=== PATIENT | female | born 1975 | race American Indian/Alaskan Native ===

== ENCOUNTER → 2016-09-14 | Outpatient (CLI) | payer BC ==
--- NOTE | 2016-09-14 11:37 | US ---
EXAMINATION TYPE: US abdomen complete DATE OF EXAM: 09/14/2016 COMPARISON: NONE CLINICAL HISTORY: R10.9 Unspecified Abd Pain. epigastric pain EXAM MEASUREMENTS: Liver Length: 16.1cm cm Gallbladder Wall: 0.2 cm CBD: 0.5 cm Spleen: 8.2 cm Right Kidney: 9.6 x 3.8 x 5.5 cm Left Kidney: 10.9 x 4.8 x 4.9 cm Some exam limitations due to overlying bowel gas. Pancreas: Tail obscured by overlying bowel gas, visualized portions wnl Liver: wnl Gallbladder: wnl Evidence for sonographic Chow's sign: no CBD: wnl Spleen: wnl Right Kidney: wnl Left Kidney: wnl Upper IVC: wnl Abd Aorta: wnl The kidneys show normal cortical medullary differentiation. There is no ascites. The liver is homogenous. The intrahepatic portion of the IVC and proximal abdominal aorta are within normal limits. There is no evidence of cholelithiasis. Common bile duct is unremarkable. The visu alized portions of the pancreas are homogenous. The spleen is unremarkable. Kidneys are symmetric a nd free of hydronephrosis. No renal lesions are seen. IMPRESSION: No significant abnormalities evident
--- NOTE | 2016-09-14 11:39 | US ---
EXAMINATION TYPE: US pelvic complete DATE OF EXAM: 09/14/2016 COMPARISON: US 08/20 CLINICAL HISTORY: R10.9 Unspecified Abd Pain. TECHNIQUE: Transabdominal (TA) Date of LMP: about 2 wks ago EXAM MEASUREMENTS: Uterus: 9.8 x 6.6 x 7.5 cm Endometrial Stripe: 2.0 cm Right Ovary: 2.7 x 1.5 x 2.2 cm Left Ovary: 3.3 x 1.9 x 2.7 cm 1. Uterus: Anteverted seen with a 1.6cm Nabothian cyst, bulky heterogeneous uterine body 2. Endometrium: thickened, heterogeneous, some vascularity present 3. Right Ovary: wnl 4. Left Ovary: wnl 5. Bilateral Adnexa: wnl 6. Posterior cul-de-sac: no free fluid seen IMPRESSION: Abnormal thickening of the endometrium, endometrial biopsy should be considered.
== END | disposition home or self-care (01) ==
LOC: RADUSWWP 08:17
PROVIDERS: ATTEND Family Medicine
DX: R93.8 Abnormal findings on diagnostic imaging of other specified body structures (principal); R10.9 Unspecified abdominal pain
CPT/HCPCS: 76700; 76856

== ENCOUNTER 2017-04-01 13:03 | Emergency (ER) | payer BC ==
[2017-04-01 13:31] VITALS: BP 116/60; PULSE 86; RESP 18; TEMP 100.1
[2017-04-01] MEDS ORDERED: IBUPROFEN 600 MG TAB PO STA (13:44)
--- NOTE | 2017-04-01 13:48 | ED ---
General Adult HPI - General Chief complaint: Upper Respiratory Infection Stated complaint: body aches/cough/chest discomfort Time Seen by Provider: 04/01/17 13:37 Source: patient, RN notes reviewed Mode of arrival: ambulatory Limitations: no limitations - History of Present Illness Initial comments: Patient's a 41-year-old female who presents emergency room today with her daughter with chief complaint of cough congestion. She states her daughter got sick approximately one week ago. She states her symptoms started just 2 days ago. She states that she's had some chills bodyaches. Does admit to feeling hot and cold. States she does have a sore throat. Admits to cough. Denies any other complaints. Patient denies any recent shortness of breath, chest pain , back pain, abdominal pain, nausea or vomiting, numbness or tingling, headaches or visual changes, or any other complaints. - Related Data Previous Rx's Medication Instructions Recorded Ibuprofen [Motrin] 600 mg PO Q6HR PRN #20 tab 04/22/14 Ibuprofen [Motrin] 600 mg PO Q6HR PRN #20 tab 01/10/17 Acetaminophen Tab [Tylenol] 1,000 mg PO TID 5 Days tablet 04/01/17 Ibuprofen [Motrin] 600 mg PO Q6HR PRN #30 day 04/01/17 Oseltamivir [Tamiflu] 75 mg PO Q12HR 5 Days cap 04/01/17 Allergies Allergy/AdvReac Type Severity Reaction Status Date / Time No Known Allergies Allergy Verified 04/01/17 13:31 Review of Systems ROS Statement: Those systems with pertinent positive or pertinent negative responses have been documented in the HPI. ROS Other: All systems not noted in ROS Statement are negative. Past Medical History Past Medical History: No Reported History History of Any Multi-Drug Resistant Organisms: None Reported Past Surgical History: No Surgical Hx Reported Past Psychological History: No Psychological Hx Reported Smoking Status: Current every day smoker Past Alcohol Use History: None Reported Past Drug Use History: None Reported General Exam - General Exam Comments Initial Comments: General: The patient is awake and alert, in no distress, and does not appear acutely ill. Eye: Pupils are equal, round and reactive to light, extra-ocular movements are intact. No nystagmus. There is normal conjunctiva bilaterally. No signs of icterus. Ears, nose, mouth and throat: There are moist mucous membranes and no oral lesions. Neck: The neck is supple, there is no tenderness or JVD. Cardiovascular: There is a regular rate and rhythm. No murmur, rub or gallop is appreciated. Respiratory: Lungs are clear to auscultation, respirations are non-labored, breath sounds are equal. No wheezes, stridor, rales, or rhonchi. Musculoskeletal: Normal ROM, no tenderness. Strength 5/5. Sensation intact. Pulses equal bilaterally 2+. Neurological: A&O x 3. CN II-XII intact, There are no obvious motor or sensory deficits. Coordination appears grossly intact. Speech is normal. Skin: Skin is warm and dry and no rashes or lesions are noted. Psychiatric: Cooperative, appropriate mood & affect, normal judgment. Limitations: no limitations Course Vital Signs 04/01/17 13:28 Temperature 100.1 F H Pulse Rate 86 Respiratory 18 Rate Blood Pressure 116/60 O2 Sat by Pulse 99 Oximetry Medical Decision Making - Medical Decision Making Patient's strep test negative. Chest x-ray negative for any sign of pneumonia. Patient's symptoms are consistent with influenza. Will be started on Tamiflu. Advised Tylenol/Motrin for aches pains and fevers. Advised to increase oral fluids. Advised follow-up family doctor return here to emergency room if any symptoms increase worsen. - Lab Data Lab Results 04/01/17 Range/Units 13:40 Group A Strep Rapid Negative (Negative) Disposition Clinical Impression: Influenza Disposition: HOME SELF-CARE Condition: Good Instructions: Influenza (ED) Additional Instructions: Please use medication as discussed. Please follow-up with family doctor in the next 2 days of symptoms have not improved. Please return to emergency room if the symptoms increase or worsen or for any other concerns. Prescriptions: Acetaminophen Tab [Tylenol] 1,000 mg PO TID 5 Days tablet Ibuprofen [Motrin] 600 mg PO Q6HR PRN #30 day PRN Reason: Pain Oseltamivir [Tamiflu] 75 mg PO Q12HR 5 Days cap Referrals: Josué Dennis III, MD [Primary Care Provider] - 1-2 days Time of Disposition: 14:17
--- NOTE | 2017-04-01 14:06 | XR ---
EXAMINATION TYPE: XR chest 2V DATE OF EXAM ORDERED: 04/01/2017 HISTORY: cough. REFERENCE: None. FINDINGS: The lungs are clear. Pleural spaces are clear. Heart size is normal. IMPRESSION: NORMAL CHEST.
== END 2017-04-01 14:26 | disposition home or self-care (01) ==
LOC: EC 13:03
DX: J11.1 Influenza due to unidentified influenza virus with other respiratory manifestations (principal); F17.200 Nicotine dependence, unspecified, uncomplicated
CPT/HCPCS: 71046; 87081; 87430; 99283

== ENCOUNTER → 2018-10-11 | Outpatient (CLI) | payer BC ==
--- NOTE | 2018-10-14 09:15 | MM ---
Reason for exam: screening (asymptomatic). Last mammogram was performed 7 years and 1 month ago. Physical Findings: A clinical breast exam by your physician is recommended on an annual basis and results should be correlated with mammographic findings. MG Screening Mammo w CAD Bilateral CC and MLO view(s) were taken. Prior study comparison: August 29, 2011, [facility] DIGITAL RIGHT MAMMOGRAM w/CAD. August 24, 2011, bilateral digital screening mammo w/CAD. The breast tissue is heterogeneously dense. This may lower the sensitivity of mammography. There is no discrete abnormality. ASSESSMENT: Negative, BI-RAD 1 RECOMMENDATION: Routine screening mammogram of both breasts in 1 year.
== END | disposition home or self-care (01) ==
LOC: RADMAMWWP 08:47
PROVIDERS: ATTEND Obstetrics & Gynecology
DX: Z12.31 Encounter for screening mammogram for malignant neoplasm of breast (principal)
CPT/HCPCS: 77067

== ENCOUNTER → 2019-12-05 | Outpatient (CLI) | payer BC ==
--- NOTE | 2019-12-09 08:34 | MM ---
Reason for exam: screening (asymptomatic). Last mammogram was performed 1 year and 2 months ago. Physical Findings: A clinical breast exam by your physician is recommended on an annual basis and results should be correlated with mammographic findings. MG Screening Mammo w CAD Bilateral CC and MLO view(s) were taken. Prior study comparison: October 11, 2018, bilateral MG screening mammo w CAD. August 29, 2011, [facility] DIGITAL RIGHT MAMMOGRAM w/CAD. The breast tissue is heterogeneously dense. This may lower the sensitivity of mammography. No significant changes when compared with prior studies. ASSESSMENT: Negative, BI-RAD 1 RECOMMENDATION: Routine screening mammogram of both breasts in 1 year.
== END | disposition home or self-care (01) ==
LOC: RADMAMWWP 16:36
PROVIDERS: ATTEND Obstetrics & Gynecology
DX: Z12.31 Encounter for screening mammogram for malignant neoplasm of breast (principal)
CPT/HCPCS: 77067

== ENCOUNTER → 2019-12-19 | Outpatient (CLI) | payer BC | END | disposition home or self-care (01) | LOC: LABWHC1 13:51 | PROVIDERS: ATTEND Nurse Practitioner Family | DX: Z20.828 Contact with and (suspected) exposure to other viral communicable diseases (principal) | CPT/HCPCS: U0003; C9803 ==

== ENCOUNTER → 2020-03-03 | Outpatient (CLI) | payer BC ==
--- NOTE | 2020-03-03 16:02 | US ---
EXAMINATION TYPE: US abdomen complete DATE OF EXAM: 03/03/2020 COMPARISON: 09/14/2016 CLINICAL HISTORY: R10.13 Epigastric pain. Epigastric pain. NPO. No prior abdominal surgeries. EXAM MEASUREMENTS: Liver Length: 16.3 cm Gallbladder Wall: 0.2 cm CBD: 0.4 cm Spleen: 10.2 cm Right Kidney: 9.3 x 4.6 x 4.4 cm Left Kidney: 10.1 x 4.6 x 4.8 cm Pancreas: wnl Liver: wnl Gallbladder: wnl Evidence for sonographic Chow's sign: neg CBD: wnl Spleen: wnl Right Kidney: No hydronephrosis or masses seen Left Kidney: No hydronephrosis or masses seen Upper IVC: wnl Abd Aorta: No AAA visualized IMPRESSION: 1. Hepatomegaly.
== END | disposition home or self-care (01) ==
LOC: RADUSWWP 10:20
PROVIDERS: ATTEND Family Medicine
DX: R16.0 Hepatomegaly, not elsewhere classified (principal); R10.13 Epigastric pain
CPT/HCPCS: 76700

== ENCOUNTER 2020-04-23 07:04 | Day surgery (SDC) | payer BC ==
[2020-04-21 09:51] VITALS: BMI 29.9
[2020-04-23 09:03] VITALS: RESP 18; TEMP 97.4
[2020-04-23] MEDS ORDERED: LACTATED RINGERS 1,000 ML IV ONE (09:13)
[2020-04-23] MEDS ORDERED: LIDOCAINE 1% INJ 10MG/ML (20 ML MDV) ONE (09:34)
[2020-04-23] MEDS ORDERED: PROPOFOL 10 MG/ML 20 ML VIAL IV ONE (09:34)
--- NOTE | 2020-04-23 09:55 | P.PCN ---
Date of Procedure: 04/23/20 Procedure(s) Performed: Brief history: Patient is a pleasant 44-year-old white female scheduled for an elective upper endoscopy as well as colonoscopy as a part of evaluation of Iron deficiency anemia and long-standing history of GERD. Procedure performed: Esophagogastroduodenoscopy with biopsy Colonoscopy Preoperative diagnosis: Iron deficiency anemia. History of GERD Anesthesia: MAC Procedure: After informed consent was obtained from the patient was brought into the endoscopy unit and IV sedation was administered by anesthesia under continuous monitoring. Initially upper endoscopy was done. The Olympus GF 160 video endoscope was inserted inserted into the mouth and esophagus intubated without any difficulty and was gradually advanced into the stomach and duodenum and carefully examined. The bulb and second part of the duodenum appeared normal. Biopsies were done from the duodenum to rule out celiac disease. The scope was then withdrawn into the stomach adequately insufflated with air and upon careful examination the antrum and body, cardia and fundus appeared normal. The scope was then withdrawn into the esophagus. The GE junction was located at 40 cm to the incisors. It appeared regular with no erythema erosions or ulcerations. Rest of the esophagus appeared normal. Patient tolerated the procedure well. At this time the patient continued to remain sedation. Initial digital rectal examination was normal. Olympus CF 160 video colonoscope was then inserted into the rectum and gradually advanced to the cecum without any difficulty. Careful examination was performed as the scope was gradually being withdrawn. The prep was excellent. The cecum, ascending colon, transverse colon, descending colon, sigmoid colon and rectum appeared normal. Retroflexion was performed in the rectum and no lesions were noted. Patient tolerated the procedure well. Impression: 1. Upper endoscopy was essentially within normal limits with no evidence of gastritis or peptic ulcer disease 2. Colonoscopy revealed no evidence of colorectal neoplasia Recommendations: Findings of this examination were discussed with the patient as well as her family. She was advised to follow with the biopsy results and she'll be seen in office in one to 2 weeks.
[2020-04-23 10:16] VITALS: BP 110/66; PULSE 70
== END 2020-04-23 10:37 | disposition home or self-care (01) ==
LOC: ORWHC2ENDO 07:04
PROVIDERS: ATTEND Internal Medicine Gastroenterology
DX: D72.820 Lymphocytosis (symptomatic) (principal); D50.9 Iron deficiency anemia, unspecified; K21.9 Gastro-esophageal reflux disease without esophagitis; Z79.899 Other long term (current) drug therapy
CPT/HCPCS: 81025; 88305; 45378; 43239; J2001; J2704

== ENCOUNTER → 2020-04-28 | Outpatient (CLI) | payer BC ==
[2020-04-29 06:05] LABS: Gliadin AB IgA, Deaminated NEGATIVE (NEGATIVE); Gliadin AB IgA, Unit 1.3 U/mL; Gliadin AB IgG, Deaminated NEGATIVE (NEGATIVE)
== END | disposition home or self-care (01) ==
LOC: LABWHC1 15:03
PROVIDERS: ATTEND Nurse Practitioner
DX: R89.7 Abnormal histological findings in specimens from other organs, systems and tissues (principal)
CPT/HCPCS: 36415; 83516

== ENCOUNTER → 2020-04-30 | Outpatient (CLI) | payer BC ==
[2020-04-30 18:11] LABS: % Iron Saturation 10.19 (12.00-45.00)
[2020-04-30 18:13] LABS: Basophils # (A) 0.04 X 10*3/uL (0.00-0.10); Eosinophils # (A) 0.03 X 10*3/uL (0.04-0.35); Eosinophils % (A) 0.8 %; HGB 11.8 g/dL (12.0-15.0); Lymphocytes # (A) 1.42 X 10*3/uL (0.90-5.00); Lymphocytes % (A) 36.6 %; MCH 27.8 pg (27.0-32.0); MCHC 30.3 g/dL (32.0-37.0); MCV 91.8 fL (80.0-97.0); Mean Platelet Volume 12.9 fL (9.5-12.2); Monocytes # (A) 0.77 X 10*3/uL (0.20-1.00); Monocytes % (A) 19.8 %; Neutrophils # (A) 1.61 X 10*3/uL (1.80-7.70); Neutrophils % (A) 41.5 %; Platelet Count 181 X 10*3/uL (140-440); RBC 4.25 X 10*6/uL (4.10-5.20); WBC 3.88 X 10*3/uL (4.50-10.00)
[2020-04-30 18:20] LABS: Ferritin 22.1 ng/mL (10.0-291.0)
== END | disposition home or self-care (01) ==
LOC: LABWHC1 10:24
PROVIDERS: ATTEND Nurse Practitioner
DX: D50.9 Iron deficiency anemia, unspecified (principal)
CPT/HCPCS: 36415; 82728; 83540; 83550; 85025

== ENCOUNTER → 2020-05-20 | Outpatient (CLI) | payer BC | END | disposition home or self-care (01) | LOC: LABWHC1 16:16 | PROVIDERS: ATTEND Nurse Practitioner Family | DX: Z20.822 Contact with and (suspected) exposure to COVID-19 (principal) | CPT/HCPCS: U0003; C9803 ==

== ENCOUNTER 2020-09-19 14:50 | Emergency (ER) | payer BC ==
[2020-09-19] MEDS ORDERED: DIPH,PERTUS(ACELL)TETVAC-LF 0.5 ML VIAL IM ONE (14:53)
[2020-09-19 15:01] LABS: Glucose,Whole Blood 122 mg/dL (75-99)
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
[2020-09-19 15:06] VITALS: BP 125/75; PULSE 92; RESP 18; TEMP 98.4
[2020-09-19 15:22] LABS: Basophils # (A) 0.1 k/uL (0-0.2); Basophils % (A) 1 %; Eosinophils % (A) 0 %; HCT 42.8 % (34.0-46.0); HGB 14.4 gm/dL (11.4-16.0); Lymphocytes % (A) 16 %; MCH 32.7 pg (25.0-35.0); MCHC 33.7 g/dL (31.0-37.0); Mean Platelet Volume 9.6; Monocytes # (A) 0.3 k/uL (0-1.0); Monocytes % (A) 4 %; Neutrophils % (A) 78 %; Platelet Count 196 k/uL (150-450); RBC 4.41 m/uL (3.80-5.40); RDW 13.9 % (11.5-15.5); WBC 6.4 k/uL (3.8-10.6)
[2020-09-19 15:30] LABS: Partial Thromboplastin Time 23.3 sec (22.0-30.0); Prothrombin Time 10.3 sec (9.0-12.0)
[2020-09-19 15:38] LABS: ALT 16 U/L (4-34); AST 35 U/L (14-36); African American GFR (CKD) >90 (>60 ml/min/1.73 sqM); Albumin 4.3 g/dL (3.5-5.0); Alcohol <10 mg/dL; Alkaline Phosphatase 53 U/L (38-126); Anion Gap 9 mmol/L; Blood Urea Nitrogen 8 mg/dL (7-17); Calcium 9.4 mg/dL (8.4-10.2); Carbon Dioxide 22 mmol/L (22-30); Chloride 108 mmol/L (98-107); Glucose 122 mg/dL (74-99); Non-African American GFR(CKD) >90 (>60 ml/min/1.73 sqM); Sodium 139 mmol/L (137-145); Total Bilirubin 0.4 mg/dL (0.2-1.3)
--- NOTE | 2020-09-19 15:38 | XR ---
EXAMINATION TYPE: XR pelvis AP view DATE OF EXAM: 09/19/2020 COMPARISON: 08/11/2015 HISTORY: Pain TECHNIQUE: FINDINGS: Single view shows an intact pelvic ring. Proximal femurs are intact. Sacroiliac joints are intact. There are clips from tubal ligation. IMPRESSION: Normal exam. No fracture.
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
[2020-09-19] MEDS ORDERED: LIDOCAINE 1% INJ 10MG/ML (20 ML MDV) SQ ONE (15:48)
[2020-09-19 15:56] LABS: Potassium 4.4 mmol/L (3.5-5.1)
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
--- NOTE | 2020-09-19 16:33 | XR ---
EXAMINATION TYPE: XR hand complete LT DATE OF EXAM: 09/19/2020 COMPARISON: NONE HISTORY: Pain TECHNIQUE: 3 views FINDINGS: Metacarpals are intact. I see no fracture nor dislocation. Joint spaces are fairly normal. There are no erosions. Carpal bones are intact. IMPRESSION: No acute abnormality of the left hand.
[2020-09-19] MEDS ORDERED: PROPARACAINE 0.5% OPHTH DROPS 15 ML BTL LEFT EYE STA (16:51)
[2020-09-19] MEDS ORDERED: FLUORESCEIN STRIPS 1 MG STRIP LEFT EYE ONE (17:02)
[2020-09-19] MEDS ORDERED: MORPHINE SULFATE 2 MG/ML SYRINGE IVP STA (17:14)
[2020-09-19] MEDS ORDERED: KETOROLAC 15 MG/ML 1 ML VIAL IVP STA (17:14)
[2020-09-19] MEDS ORDERED: BACITRACIN OINT 1 EACH PACKET TOPICAL ONE (17:14)
== END 2020-09-19 17:30 | disposition home or self-care (01) ==
LOC: EC 14:50
DX: S01.81XA Laceration without foreign body of other part of head, initial encounter (principal); M54.2 Cervicalgia; M79.642 Pain in left hand; R10.2 Pelvic and perineal pain; Z87.891 Personal history of nicotine dependence; Z23 Encounter for immunization; V29.9XXA Motorcycle rider (driver) (passenger) injured in unspecified traffic accident, initial encounter
CPT/HCPCS: 36415; 93005; 86900; 86901; 80053; 84484; 85025; 85610; 85730; 86850; 80320; 72170; 73130; 71045; 72125; 70486; 70450; 71260; 74177; 90715; 99284; 12052; 90471; J2001; Q9967

== ENCOUNTER → 2020-12-31 | Outpatient (CLI) | payer BC ==
--- NOTE | 2021-01-03 12:54 | MM ---
Reason for exam: screening (asymptomatic). Last mammogram was performed 1 year and 1 month ago. History: Family history of breast cancer in cousin at age 51. Physical Findings: A clinical breast exam by your physician is recommended on an annual basis and results should be correlated with mammographic findings. MG Screening Mammo w CAD Bilateral CC and MLO view(s) were taken. Prior study comparison: December 05, 2019, bilateral MG screening mammo w CAD. October 11, 2018, bilateral MG screening mammo w CAD. The breast tissue is heterogeneously dense. This may lower the sensitivity of mammography. There is no discrete abnormality. No significant changes when compared with prior studies. ASSESSMENT: Negative, BI-RAD 1 RECOMMENDATION: Routine screening mammogram of both breasts in 1 year.
== END | disposition home or self-care (01) ==
LOC: RADMAMWWP 15:52
PROVIDERS: ATTEND Obstetrics & Gynecology
DX: Z12.31 Encounter for screening mammogram for malignant neoplasm of breast (principal)
CPT/HCPCS: 77067

== ENCOUNTER → 2022-07-10 | Outpatient (CLI) | payer BC ==
--- NOTE | 2022-07-10 09:29 | CT ---
EXAMINATION TYPE: CT iac wo con DATE OF EXAM: 07/10/2022 COMPARISON: CT brain September 19, 2020 HISTORY: Left sided hearing loss. CT DLP: 142.7 mGycm. Automated Exposure Control for Dose Reduction was Utilized. TECHNIQUE: CT scan of internal auditory canal is performed without contrast, thin cut axial images ar e obtained, coronal reformatted images are also reviewed. FINDINGS: The external auditory canals remain patent bilaterally. Mastoid air cells show no evidence of abnormal opacification bilaterally. The middle ear ossicles are symmetric and unremarkable. There is no evidence of suspicious surroundi ng soft tissue density to suggest cholesteatoma. The scutum is preserved bilaterally. The cochlea and the semicircular canals are symmetric and unremarkable. Satisfactory superior bony co verage of the superior semicircular canal bilaterally. No dehiscence. Vestibular aqueduct and mechanical intern al carotid canal appear unremarkable. Temporomandibular joints are maintained bilaterally. Visualized paranasal sinuses are grossly clear. Visualized portion brain parenchyma is felt within normal limits. IMPRESSION: No significant abnormality seen to account for patient's symptoms of left-sided hearing l oss. No significant change from prior.
== END | disposition home or self-care (01) ==
LOC: RADCTMAIN 08:30
PROVIDERS: ATTEND Otolaryngology
DX: H92.02 Otalgia, left ear (principal)
CPT/HCPCS: 70480

== ENCOUNTER → 2023-04-12 | Outpatient (CLI) | payer BC ==
--- NOTE | 2023-04-13 08:46 | MM ---
Reason for Exam: Screening (asymptomatic). Last mammogram was performed 2 year(s) and 4 month(s) ago. Patient History: Menarche at age 13. First Full-Term at age 17. Postmenopausal. Patient has history of breast feeding. Maternal cousin had breast cancer, age 51. Risk Values: Victoria 5 year model risk: 0.6%. NCI Lifetime model risk: 6.8%. Prior Study Comparison: 10/11/2018 Bilateral Screening Mammogram, [facility]. 12/05/2019 Bilateral Screening Mammogram, [facility]. 12/31/2020 Bilateral Screening Mammogram, [facility]. Tissue Density: The breasts are heterogeneously dense, which may obscure small masses. Findings: Analyzed By CAD. There is no suspicious group of microcalcifications or new suspicious mass in either breast. Overall Assessment: Negative, BI-RAD 1 Management: Screening Mammogram of both breasts in 1 year. . Patient should continue monthly self-breast exams. A clinical breast exam by your physician is recommended on an annual basis. This exam should not preclude additional follow-up of suspicious palpable abnormalities. Note on Victoria scores and lifetime risk: 1. A Victoria score greater than 3% is considered moderate risk. If this is the case, consider specialist referral to assess eligibility for a risk reducing agent. 2. If overall lifetime risk for the development of breast cancer is 20% or higher, the patient may qualify for future screening with alternating mammogram and breast MRI. Electronically signed and approved by: Antoni Thompson M.D. Radiologis
== END | disposition home or self-care (01) ==
LOC: RADMAMWWP 10:18
PROVIDERS: ATTEND Obstetrics & Gynecology
DX: Z12.31 Encounter for screening mammogram for malignant neoplasm of breast (principal); Z80.3 Family history of malignant neoplasm of breast; Z78.0 Asymptomatic menopausal state
CPT/HCPCS: 77067

== ENCOUNTER 2024-01-20 13:25 | Inpatient (IN) | payer BC, OTHER ==
--- NOTE | 2024-01-20 14:35 | ED ---
Skin/Abscess/FB HPI - General Source: patient, RN notes reviewed Mode of arrival: ambulatory Limitations: no limitations - History of Present Illness MD complaint: abscess/boil Onset/Timin -: days(s) <Kirk Kwan - Last Filed: 01/20/24 14:34> - General Source: patient, RN notes reviewed <Brittny Harrison - Last Filed: 01/20/24 19:46> - General Chief complaint: Skin/Abscess/Foreign Body Stated complaint: Bite/Unidentified Time Seen by Provider: 01/20/24 13:41 - History of Present Illness Initial comments: Quick note: This is a 48-year-old female presenting with rash on abdomen x 3 days. Patient endorses daughter recently from home from aunts house, who had a rash before eczema rash. On patient's abdomen. Patient describes rash as "bumps" and "burning". (Kirk Kwan) 48-year-old female presenting for rash on abdomen x 3 days. States her daughter recently spent the weekend at her aunts house who returned home with several bites on her arms and abdomen. Patient reports her abdomen is red, warm, and painful. She was seen at urgent care at symptom onset and was prescribed steroid cream. Patient is also complaining of fever and general malaise. No other health conditions. (Brittny Harrison) - Related Data Home Medications Medication Instructions Recorded Confirmed Multivitamins, Thera [Multivitamin 1 tab PO DAILY 09/19/20 09/19/20 (formulary)] Previous Rx's Medication Instructions Recorded Cephalexin [Keflex] 500 mg PO QID 5 Days #20 cap 09/19/20 HYDROcodone/APAP 5-325MG [[place] 1 tab PO Q6HR PRN #12 tab 09/19/20 5-325] Ibuprofen [Motrin] 600 mg PO Q8HR PRN #24 tab 09/19/20 Allergies Allergy/AdvReac Type Severity Reaction Status Date / Time No Known Allergies Allergy Verified 01/20/24 13:57 Review of Systems ROS Other: All systems not noted in ROS Statement are negative. <Kirk Kwan - Last Filed: 01/20/24 14:34> ROS Other: All systems not noted in ROS Statement are negative. <Brittny Harrison - Last Filed: 01/20/24 19:46> ROS Statement: Those systems with pertinent positive or pertinent negative responses have been documented in the HPI. Past Medical History Past Medical History: No Reported History Additional Past Medical History / Comment(s): EPI GASTRIC PAIN History of Any Multi-Drug Resistant Organisms: None Reported Past Surgical History: Tubal Ligation Past Anesthesia/Blood Transfusion Reactions: Previous Problems w/ Anesthesia Additional Past Anesthesia/Blood Transfusion Reaction / Comment(s): WOKE UP DURING PROCEDURE Past Psychological History: No Psychological Hx Reported Smoking Status: Former smoker Past Alcohol Use History: Rare Past Drug Use History: None Reported - Past Family History Mother Family Medical History: Cancer <Kirk Kwan - Last Filed: 01/20/24 14:34> General Exam Limitations: no limitations <Kirk Kwan - Last Filed: 01/20/24 14:34> General appearance: alert, in no apparent distress Head exam: Present: atraumatic, normocephalic, normal inspection GI/Abdominal exam: Present: soft, normal bowel sounds, other (6 x 6 cm indurated, warm, erythematous abscess present on left abdomen with purulent white center). Absent: distended, tenderness, guarding, rebound, rigid Neurological exam: Present: alert, oriented X3 Psychiatric exam: Present: normal affect, normal mood Skin exam: Present: warm, dry, intact, normal color <Brittny Harrison - Last Filed: 01/20/24 19:46> - General Exam Comments Initial Comments: Visual Physical Exam Vital signs reviewed General: Well-appearing, nontoxic, no acute distress. Head: Normocephalic, atraumatic Eyes: PERRLA, EOMI ENT: Airway patent Chest: Nonlabored breathing Skin: No visual rash, normal skin tone Neuro: Alert and oriented 3 Musculoskeletal: No gross abnormalities (Kirk Kwan) Course Vital Signs 01/20/24 01/20/24 01/20/24 13:54 18:13 18:51 Temperature 100.5 F H 98.4 F 98.6 F Pulse Rate 103 H 86 Respiratory 18 18 Rate Blood Pressure 126/79 118/72 O2 Sat by Pulse 96 100 Oximetry Medical Decision Making <Kirk Kwan - Last Filed: 01/20/24 14:34> - Lab Data Result diagrams: 01/20/24 17:27 01/20/24 17:27 <Brittny Harrison - Last Filed: 01/20/24 19:46> - Medical Decision Making I completed the quick note portion of this chart signed LETICIA Rosario (Kirk Kwan) Was pt. sent in by a medical professional or institution (ABDIFATAH Izquierdo, INFORMATION SECURITY CONSULTANT, urgent care, hospital, or skilled nursing...) When possible be specific @ -No Did you speak to anyone other than the patient for history (EMS, parent, family, police, friend...)? What history was obtained from this source @ -No Did you review nursing and triage notes (agree or disagree)? Why? @ -I reviewed and agree with nursing and triage notes Were old charts reviewed (outside hosp., previous admission, EMS record, old EKG, old radiological studies, urgent care reports/EKG's, skilled nursing records)? Report findings @ -No old charts were reviewed Differential Diagnosis (chest pain, altered mental status, abdominal pain women, abdominal pain men, vaginal bleeding, weakness, fever, dyspnea, syncope, headache, dizziness, GI bleed, back pain, seizure, CVA, palpatations, mental health, musculoskeletal)? @ -Differential Musculoskeletal Muscular strain, contusion, ligament sprain, fracture, arthritis, septic arthritis, bursitis, cellulitis, muscle spasm, nerve compression, DVT, arterial occlusion, herpes zoster, electrolyte abnormality, tumor.... This is not meant to be in all inclusive list EKG interpreted by me (3pts min.). @ -None X-rays interpreted by me (1pt min.). @ -None done CT interpreted by me (1pt min.). @ -None done U/S interpreted by me (1pt. min.). @ -None done What testing was considered but not performed or refused? (CT, X-rays, U/S, labs)? Why? @ -None What meds were considered but not given or refused? Why? @ -None Did you discuss the management of the patient with other professionals (professionals i.e. ABDIFATAH Izquierdo, INFORMATION SECURITY CONSULTANT, lab, RT, psych nurse, social media developer, granite countertop installer, teacher, equal opportunity officer, outpatient case manager)? Give summary @ -I spoke with Susanna from [facility] who accepts admission Was smoking cessation discussed for >3mins.? @ -No Was critical care preformed (if so, how long)? @ -No Were there social determinants of health that impacted care today? How? (Homelessness, low income, unemployed, alcoholism, drug addiction, transportation, low edu. Level, literacy, decrease access to med. care, prison, rehab)? @ -No Was there de-escalation of care discussed even if they declined (Discuss DNR or withdrawal of care, Hospice)? DNR status @ -No What co-morbidities impacted this encounter? (DM, HTN, Smoking, COPD, CAD, Cancer, CVA, ARF, Chemo, Hep., AIDS, mental health diagnosis, sleep apnea, morbid obesity)? @ -None Was patient admitted / discharged? Hospital course, mention meds given and route, prescriptions, significant lab abnormalities, going to OR and other pertinent info. @ -Admitted. This is a 48-year-old female presenting for abdominal abscess x 3 days. Patient is febrile at 100.5 and tachycardic at 103 bpm. Examination reveals 5 x 5 cm indurated, erythematous, warm abscess on the left abdomen. Blood cultures were taken and patient was started on IV fluids and IV antibiotics. Antipyretics were given. Wound culture was sent. Lab work remarkable for white blood cell count 11.3 with left shift, lactic normal. Results discussed with patient. Upon reevaluation, fever and tachycardia resolved. I spoke with Susanna from [facility] who accepts admission to observation for IV fluids and IV antibiotics. Patient is agreeable to this plan. Case was discussed with my ED attending Dr. Ricketts. Undiagnosed new problem with uncertain prognosis? @ -No Drug Therapy requiring intensive monitoring for toxicity (Heparin, Nitro, Insulin, Cardizem)? @ -No Were any procedures done? @ -No Diagnosis/symptom? @ -Abdominal abscess Acute, or Chronic, or Acute on Chronic? @ -Acute Uncomplicated (without systemic symptoms) or Complicated (systemic symptoms)? @ -Complicated Side effects of treatment? @ -No Exacerbation, Progression, or Severe Exacerbation? @ -No Poses a threat to life or bodily function? How? (Chest pain, [place], [place], pneumonia, PE, COPD, DKA, ARF, appy, cholecystitis, CVA, Diverticulitis, Homicidal, Suicidal, threat to staff... and all critical care pts) @ -Yes (Brittny Harrison) - Lab Data Lab Results 01/20/24 01/20/24 01/20/24 Range/Units 17:27 17:27 17:27 WBC 11.3 H (3.8-10.6) k/uL RBC 4.63 (3.80-5.40) m/uL Hgb 13.9 (11.4-16.0) gm/dL Hct 42.8 (34.0-46.0) % MCV 92.4 (80.0-100.0) fL MCH 30.0 (25.0-35.0) pg MCHC 32.5 (31.0-37.0) g/dL RDW 12.8 (11.5-15.5) % Plt Count 201 (150-450) k/uL MPV 9.6 Neutrophils % 71 % Lymphocytes % 18 % Monocytes % 6 % Eosinophils % 2 % Basophils % 0 % Neutrophils # 8.0 H (1.3-7.7) k/uL Lymphocytes # 2.1 (1.0-4.8) k/uL Monocytes # 0.7 (0-1.0) k/uL Eosinophils # 0.2 (0-0.7) k/uL Basophils # 0.1 (0-0.2) k/uL Sodium 138 (137-145) mmol/L Potassium 4.1 (3.5-5.1) mmol/L Chloride 106 (98-107) mmol/L Carbon Dioxide 21 L (22-30) mmol/L Anion Gap 11 mmol/L BUN 14 (7-17) mg/dL Creatinine 0.78 (0.52-1.04) mg/dL Est GFR (CKD-EPI)AfAm >90 (>60 ml/min/1.73 sqM) Est GFR (CKD-EPI)NonAf >90 (>60 ml/min/1.73 sqM) Glucose 139 H (74-99) mg/dL Plasma Lactic Acid Erik 1.1 (0.7-2.0) mmol/L Calcium 9.4 (8.4-10.2) mg/dL Total Bilirubin 0.3 (0.2-1.3) mg/dL AST 30 (14-36) U/L ALT 20 (4-34) U/L Alkaline Phosphatase 98 (38-126) U/L Total Protein 7.0 (6.3-8.2) g/dL Albumin 4.5 (3.5-5.0) g/dL Disposition <Kirk Kwan - Last Filed: 01/20/24 14:34> Time of Disposition: 19:42 <Brittny Harrison - Last Filed: 01/20/24 19:46> Clinical Impression: Abdominal abscess Disposition: ADMITTED IP TO THIS HOSP Referrals: Maria Esther Olmedo, NPC [REFERRING] - 1-2 days
[2024-01-20 17:38] LABS: Basophils # (A) 0.1 k/uL (0-0.2); Basophils % (A) 0 %; Eosinophils # (A) 0.2 k/uL (0-0.7); Eosinophils % (A) 2 %; HCT 42.8 % (34.0-46.0); HGB 13.9 gm/dL (11.4-16.0); Lymphocytes # (A) 2.1 k/uL (1.0-4.8); Lymphocytes % (A) 18 %; MCHC 32.5 g/dL (31.0-37.0); MCV 92.4 fL (80.0-100.0); Mean Platelet Volume 9.6; Monocytes # (A) 0.7 k/uL (0-1.0); Monocytes % (A) 6 %; Neutrophils % (A) 71 %; Platelet Count 201 k/uL (150-450); RBC 4.63 m/uL (3.80-5.40); RDW 12.8 % (11.5-15.5); WBC 11.3 k/uL (3.8-10.6)
[2024-01-20] MEDS: SODIUM CHLORIDE 0.9% 1,000 ML IV STA ×2 (17:39)
[2024-01-20] MEDS: ACETAMINOPHEN IV (For NPO) 1,000 MG in EMPTY BAG 1 BAG IVPB STA (17:43)
[2024-01-20 17:51] LABS: ALT 20 U/L (4-34); AST 30 U/L (14-36); African American GFR (CKD) >90 (>60 ml/min/1.73 sqM); Albumin 4.5 g/dL (3.5-5.0); Alkaline Phosphatase 98 U/L (38-126); Anion Gap 11 mmol/L; Blood Urea Nitrogen 14 mg/dL (7-17); Calcium 9.4 mg/dL (8.4-10.2); Carbon Dioxide 21 mmol/L (22-30); Chloride 106 mmol/L (98-107); Glucose 139 mg/dL (74-99); Non-African American GFR(CKD) >90 (>60 ml/min/1.73 sqM); Potassium 4.1 mmol/L (3.5-5.1); Sodium 138 mmol/L (137-145); Total Bilirubin 0.3 mg/dL (0.2-1.3)
[2024-01-20] MEDS ORDERED: VANCOMYCIN IV PER PHARMACY 1 EACH MISC MISCELLANE PRN (19:39)
[2024-01-20] MEDS ORDERED: HYDROmorphone 1 MG/ML 1 ML SYRINGE IVP PRN (19:41)
[2024-01-20] MEDS ORDERED: NALOXONE 0.4 MG/ML 1 ML VIAL IV PRN (19:41)
[2024-01-20] MEDS: VANCOMYCIN 1,500 MG in SODIUM CHLORIDE 0.9% 500 ML 500 ML IVPB STA (20:14)
[2024-01-20] MEDS: SODIUM CHLORIDE 0.9% 1,000 ML IV SCH (21:49)
[2024-01-21 06:50] LABS: African American GFR (CKD) >90 (>60 ml/min/1.73 sqM); Anion Gap 7 mmol/L; Blood Urea Nitrogen 10 mg/dL (7-17); Carbon Dioxide 22 mmol/L (22-30); Chloride 109 mmol/L (98-107); Glucose 119 mg/dL (74-99); Non-African American GFR(CKD) >90 (>60 ml/min/1.73 sqM); Potassium 4.5 mmol/L (3.5-5.1); Sodium 138 mmol/L (137-145)
[2024-01-21] MEDS: VANCOMYCIN 1,500 MG in SODIUM CHLORIDE 0.9% 500 ML 500 ML IVPB SCH ×2 (10:45→21:25)
--- NOTE | 2024-01-21 12:47 | P.HPIM ---
History of Present Illness 48-year-old female came in with a rash that started 3 days ago patient does have abscess in the lower anterior abdominal wall patient has a small circular wound as well patient does not know if she had a spider bite or something like that. Did have fever yesterday was started on vancomycin was given a dose of Rocephin in ER REVIEW OF SYSTEMS: All other systems are negative except those mentioned in the HPI PHYSICAL EXAMINATION: GENERAL: The patient is alert and oriented x3, not in any acute distress. Well developed, well nourished. HEENT: Pupils are round and equally reacting to light. EOMI. No scleral icterus. No conjunctival pallor. Normocephalic, atraumatic. No pharyngeal erythema. No thyromegaly. CARDIOVASCULAR: S1 and S2 present. No murmurs, rubs, or gallops. PULMONARY: Chest is clear to auscultation, no wheezing or crackles. ABDOMEN: Soft, nontender, nondistended, normoactive bowel sounds. No palpable o rganomegaly. MUSCULOSKELETAL: No joint swelling or deformity. EXTREMITIES: No cyanosis, clubbing, or pedal edema. NEUROLOGICAL: Gross neurological examination did not reveal any focal deficits. SKIN: Large induration/abscess in the left lower anterior abdominal wall with a small ulcer-abdominal wall abscess. Assessment and plan -Sepsis secondary to abdominal wall abscess patient will need I&D General Surgery will consult. Vancomycin will be continued infectious disease will be consulted as well. Doses secondary to above DVT prophylaxis: Early ambulation Okay Past Medical History Past Medical History: No Reported History Additional Past Medical History / Comment(s): EPI GASTRIC PAIN History of Any Multi-Drug Resistant Organisms: None Reported Past Surgical History: Tubal Ligation Past Anesthesia/Blood Transfusion Reactions: Previous Problems w/ Anesthesia Additional Past Anesthesia/Blood Transfusion Reaction / Comment(s): WOKE UP DURING PROCEDURE Past Psychological History: No Psychological Hx Reported Smoking Status: Former smoker Past Alcohol Use History: Rare Past Drug Use History: None Reported - Past Family History Mother Family Medical History: Cancer Medications and Allergies Home Medications Medication Instructions Recorded Confirmed Type Cholecalciferol [Vitamin D3 (25 100 mcg PO DAILY 01/21/24 01/21/24 History Mcg = 1000 Iu)] Menopause Supplement 1 tab PO DAILY 01/21/24 01/21/24 History [place]-3/Dha/Epa/Fish Oil [Fish Oil 1 cap PO DAILY 01/21/24 01/21/24 History 1,000 mg Softgel] Allergies Allergy/AdvReac Type Severity Reaction Status Date / Time No Known Allergies Allergy Verified 01/21/24 07:28 Physical Exam Vitals: Vital Signs Temp Pulse Pulse Resp BP BP Pulse Ox 01/21/24 07:46 99 F 87 16 125/70 96 01/21/24 07:25 99.2 F 86 18 136/78 99 01/21/24 06:00 99.4 F 88 16 128/79 96 01/21/24 00:34 78 16 116/69 99 01/20/24 19:57 97.8 F 72 18 123/71 96 01/20/24 18:51 98.6 F 01/20/24 18:13 98.4 F 86 18 118/72 100 01/20/24 13:54 100.5 F H 103 H 18 126/79 96 Intake and Output 01/20/24 01/21/24 01/21/24 22:59 06:59 14:59 Intake Total 118 Balance 118 Intake: Oral 118 Results CBC & Chem 7: 01/20/24 17:27 01/21/24 06:17 Labs: Abnormal Lab Results - Last 24 Hours (Table) 01/20/24 01/20/24 01/21/24 Range/Units 17:27 17:27 06:17 WBC 11.3 H (3.8-10.6) k/uL Neutrophils # 8.0 H (1.3-7.7) k/uL Chloride 109 H (98-107) mmol/L Carbon Dioxide 21 L (22-30) mmol/L Glucose 139 H 119 H (74-99) mg/dL Microbiology - Last 24 Hours (Table) 01/20/24 16:57 Gram Stain - Preliminary Abdomen
--- NOTE | 2024-01-21 13:54 | P.GSCN ---
History of Present Illness Consult date: 01/21/24 History of present illness: CHIEF COMPLAINT: Abdominal wall abscess HISTORY OF PRESENT ILLNESS: This is a 48-year-old female who presented to the ER with complaints of a rash on her abdomen. She reports that it has been present x 1 week. She reports having low-grade fevers and not feeling well. She denies any drainage from the abscess. Denies any prior history of abscesses. Denies any diabetes history denies any history of MRSA. Patient denies any injury to t he area. She is not sure what caused it. Her daughter has a rash on her arms that has blistered and is draining. PAST MEDICAL HISTORY: See below PAST SURGICAL HISTORY: Tubal ligation MEDICATIONS: See below ALLERGIES: See below SOCIAL HISTORY: No illicit drug use. REVIEW OF SYSTEMS: CONSTITUTIONAL: Denies fever or chills. HEENT: Denies blurred vision, vision changes, or eye pain. Denies hemoptysis CARDIOVASCULAR: Denies chest pain or pressure. RESPIRATORY: No shortness of breath. GASTROINTESTINAL: See HPI for pertinent findings HEMATOLOGIC: Denies bleeding disorders. GENITOURINARY: Denies any blood in urine or increased urinary frequency. SKIN: Denies pruitis. Denies rash. PHYSICAL EXAM: VITAL SIGNS: Reviewed GENERAL: Well-developed in no acute distress. HEENT: No sclera icterus. Extraocular movements grossly intact. Moist buccal mucosa. Head is atraumatic, normocephalic. No nasal drainage. ABDOMEN: Soft. Nondistended. Left lower abdominal wall with a small open circular area with surrounding erythema that is spreading along the lower abdomen. There is small area of fluctuance around the small wound. The area is indurated. Tender with palpation. No drainage noted. NEUROLOGIC: Alert and oriented. Cranial nerves II through XII grossly intact. LABORATORY DATA: WBC 11.3 Hgb 13.9 platelets 201 Sodium 138 potassium 4.5 creatinine 0.67 Lactic acid 1.1 IMAGING: ASSESSMENT: 1. Abdominal wall abscess PLAN: -Patient scheduled for incision and drainage of abdominal wall abscess tomorrow with Dr. Zheng -N.p.o. after midnight -Continue antibiotics -Continue pain management -Agree with ID consult Physician Director Of Ancillary Services note has been reviewed by physician. Signing provider agrees with the documented findings, assessment, and plan of care. Attestation Patient did eat lunch. Patient plan for I&D of abscess tomorrow with n.p.o. after midnight. Continue IV antibiotics at this time. Jayjay Putnam DO Past Medical History Past Medical History: No Reported History Additional Past Medical History / Comment(s): EPI GASTRIC PAIN History of Any Multi-Drug Resistant Organisms: None Reported Past Surgical History: Tubal Ligation Past Anesthesia/Blood Transfusion Reactions: Previous Problems w/ Anesthesia Additional Past Anesthesia/Blood Transfusion Reaction / Comm: WOKE UP DURING P ROCEDURE Past Psychological History: No Psychological Hx Reported Smoking Status: Former smoker Past Alcohol Use History: Rare Past Drug Use History: None Reported - Past Family History Mother Family Medical History: Cancer Medications and Allergies Home Medications Medication Instructions Recorded Confirmed Type Cholecalciferol [Vitamin D3 (25 100 mcg PO DAILY 01/21/24 01/21/24 History Mcg = 1000 Iu)] Menopause Supplement 1 tab PO DAILY 01/21/24 01/21/24 History [place]-3/Dha/Epa/Fish Oil [Fish Oil 1 cap PO DAILY 01/21/24 01/21/24 History 1,000 mg Softgel] Allergies Allergy/AdvReac Type Severity Reaction Status Date / Time No Known Allergies Allergy Verified 01/21/24 07:28 Surgical - Exam Osteopathic Statement: *. No significant issues noted on an osteopathic structural exam other than those noted in the History and Physical/Consult. Vital Signs Temp Pulse Resp BP Pulse Ox 100.5 F H 103 H 18 126/79 96 01/20/24 13:54 01/20/24 13:54 01/20/24 13:54 01/20/24 13:54 01/20/24 13:54 Results - Labs 01/20/24 17:27 01/21/24 06:17 Abnormal Lab Results - Last 24 Hours (Table) 01/20/24 01/20/24 01/21/24 Range/Units 17:27 17:27 06:17 WBC 11.3 H (3.8-10.6) k/uL Neutrophils # 8.0 H (1.3-7.7) k/uL Chloride 109 H (98-107) mmol/L Carbon Dioxide 21 L (22-30) mmol/L Glucose 139 H 119 H (74-99) mg/dL Microbiology - Last 24 Hours (Table) 01/20/24 16:57 Gram Stain - Preliminary Abdomen Diabetes panel 01/20/24 01/21/24 Range/Units 17:27 06:17 Sodium 138 138 (137-145) mmol/L Potassium 4.1 4.5 (3.5-5.1) mmol/L Chloride 106 109 H (98-107) mmol/L Carbon Dioxide 21 L 22 (22-30) mmol/L BUN 14 10 (7-17) mg/dL Creatinine 0.78 0.67 (0.52-1.04) mg/dL Glucose 139 H 119 H (74-99) mg/dL Calcium 9.4 9.0 (8.4-10.2) mg/dL AST 30 (14-36) U/L ALT 20 (4-34) U/L Alkaline Phosphatase 98 (38-126) U/L Total Protein 7.0 (6.3-8.2) g/dL Albumin 4.5 (3.5-5.0) g/dL Calcium panel 01/20/24 01/21/24 Range/Units 17:27 06:17 Calcium 9.4 9.0 (8.4-10.2) mg/dL Albumin 4.5 (3.5-5.0) g/dL Pituitary panel 01/20/24 01/21/24 Range/Units 17:27 06:17 Sodium 138 138 (137-145) mmol/L Potassium 4.1 4.5 (3.5-5.1) mmol/L Chloride 106 109 H (98-107) mmol/L Carbon Dioxide 21 L 22 (22-30) mmol/L BUN 14 10 (7-17) mg/dL Creatinine 0.78 0.67 (0.52-1.04) mg/dL Glucose 139 H 119 H (74-99) mg/dL Calcium 9.4 9.0 (8.4-10.2) mg/dL Adrenal panel 01/20/24 01/21/24 Range/Units 17:27 06:17 Sodium 138 138 (137-145) mmol/L Potassium 4.1 4.5 (3.5-5.1) mmol/L Chloride 106 109 H (98-107) mmol/L Carbon Dioxide 21 L 22 (22-30) mmol/L BUN 14 10 (7-17) mg/dL Creatinine 0.78 0.67 (0.52-1.04) mg/dL Glucose 139 H 119 H (74-99) mg/dL Calcium 9.4 9.0 (8.4-10.2) mg/dL Total Bilirubin 0.3 (0.2-1.3) mg/dL AST 30 (14-36) U/L ALT 20 (4-34) U/L Alkaline Phosphatase 98 (38-126) U/L Total Protein 7.0 (6.3-8.2) g/dL Albumin 4.5 (3.5-5.0) g/dL
[2024-01-21] MEDS: ACETAMINOPHEN TAB 325 MG TAB PO PRN (19:33)
--- NOTE | 2024-01-21 21:20 | P.CONS ---
History of Present Illness - Reason for Consult Consult date: 01/21/24 Abdominal wall abscess Requesting physician: Guru Almaraz - Chief Complaint Lower abdominal wall pain swelling redness x 3 days - History of Present Illness Patient is a 48-year-old female with no significant past medical history presenting to the hospital for evaluation of lower abdominal swelling redness pain that apparently has been getting worse over the last 3 days patient mention that her daughter recently came home from her aunts house and did have a multi ple skin lesion to the right elbow area and she basically brought her to be evaluated in the ER patient on presentation to hospital have fever 100.5 F did not recall having any fever at home patient was not tachycardic hypotensive or hypoxic she has been complaining of pain to the lower abdominal area mostly sharp moderate intensity without radiation patient did have elevated white count of 11.3 with a left shift creatinine was 0.7 electrolytes are normal liver isms are normal local culture have been obtained currently pending patient was started on vancomycin infectious disease was consulted for further management of antibiotic therapy Review of Systems Positive point and negatives has been mentioned in the HPI, complete review of systems was performed and all other systems are negative Past Medical History Past Medical History: No Reported History Additional Past Medical History / Comment(s): EPI GASTRIC PAIN History of Any Multi-Drug Resistant Organisms: None Reported Past Surgical History: Tubal Ligation Past Anesthesia/Blood Transfusion Reactions: Previous Problems w/ Anesthesia Additional Past Anesthesia/Blood Transfusion Reaction / Comm: WOKE UP DURING PROCEDURE Past Psychological History: No Psychological Hx Reported Smoking Status: Former smoker Past Alcohol Use History: Rare Past Drug Use History: None Reported - Past Family History Mother Family Medical History: Cancer Medications and Allergies Home Medications Medication Instructions Recorded Confirmed Type Cholecalciferol [Vitamin D3 (25 100 mcg PO DAILY 01/21/24 01/21/24 History Mcg = 1000 Iu)] Menopause Supplement 1 tab PO DAILY 01/21/24 01/21/24 History [place]-3/Dha/Epa/Fish Oil [Fish Oil 1 cap PO DAILY 01/21/24 01/21/24 History 1,000 mg Softgel] Allergies Allergy/AdvReac Type Severity Reaction Status Date / Time No Known Allergies Allergy Verified 01/21/24 07:28 Physical Exam Vitals: Vital Signs Temp Pulse Pulse Resp BP BP Pulse Ox 01/21/24 07:46 99 F 87 16 125/70 96 01/21/24 07:25 99.2 F 86 18 136/78 99 01/21/24 06:00 99.4 F 88 16 128/79 96 01/21/24 00:34 78 16 116/69 99 01/20/24 19:57 97.8 F 72 18 123/71 96 01/20/24 18:51 98.6 F 01/20/24 18:13 98.4 F 86 18 118/72 100 01/20/24 13:54 100.5 F H 103 H 18 126/79 96 Intake and Output 01/20/24 01/21/24 01/21/24 22:59 06:59 14:59 Intake Total 118 Balance 118 Intake: Oral 118 GENERAL DESCRIPTION: Middle-aged female lying in bed, no distress. No tachypnea or accessory muscle of respiration use. HEENT: Shows Pallor , no scleral icterus. Oral mucous membrane is dry. NECK: Trachea central, no thyromegaly. LUNGS: Unlabored breathing. Clear to auscultation anteriorly. No wheeze or crackle. HEART: S1, S2, regular rate and rhythm. No loud murmur ABDOMEN: Soft, lower abdominal wound with an area of swelling redness induration and tenderness EXTREMITIES: No edema of feet. SKIN: No rash, no masses palpable. NEUROLOGICAL: The patient is awake, alert, oriented x3, mood and affect normal. Results CBC & Chem 7: 01/20/24 17:27 01/21/24 06:17 Labs: Abnormal Lab Results - Last 24 Hours (Table) 01/20/24 01/20/24 01/21/24 Range/Units 17:27 17:27 06:17 WBC 11.3 H (3.8-10.6) k/uL Neutrophils # 8.0 H (1.3-7.7) k/uL Chloride 109 H (98-107) mmol/L Carbon Dioxide 21 L (22-30) mmol/L Glucose 139 H 119 H (74-99) mg/dL Microbiology - Last 24 Hours (Table) 01/20/24 16:57 Gram Stain - Preliminary Abdomen Assessment and Plan (1) Abdominal abscess Current Visit: Yes Status: Acute Code(s): [id number] - SNOMED Code(s): 00089544 (2) Sepsis Current Visit: Yes Status: Acute Code(s): A41.9 - SEPSIS, UNSPECIFIED ORGANISM SNOMED Code(s): 55264396 Plan: 1patient presented hospital with sepsis in this patient who did have a fever tachycardia elevated white count elevated creatinine. 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 2await surgical drainage and deep culture. 3vancomycin pharmacy to dose target trough of 15 while watching kidney function and Vanco trough closely. Multiple question concern were answered We will follow on clinical condition and cultures to further adjust medication if needed Thank you for this consultation we will follow the patient along with you Dictation was produced using [employer] dictation software. please excuse any grammatical, word or spelling errors. Time with Patient: Greater than 30
[2024-01-22] MEDS: KETOROLAC 15 MG/ML 1 ML VIAL IVP PRN (05:27)
[2024-01-22 05:46] LABS: Basophils % (A) 1 %; Eosinophils # (A) 0.2 k/uL (0-0.7); Eosinophils % (A) 2 %; HCT 39.3 % (34.0-46.0); HGB 12.6 gm/dL (11.4-16.0); Lymphocytes # (A) 1.4 k/uL (1.0-4.8); Lymphocytes % (A) 18 %; MCH 29.9 pg (25.0-35.0); MCHC 32.1 g/dL (31.0-37.0); MCV 93.1 fL (80.0-100.0); Mean Platelet Volume 9.3; Monocytes # (A) 0.7 k/uL (0-1.0); Monocytes % (A) 8 %; Neutrophils # (A) 5.7 k/uL (1.3-7.7); Neutrophils % (A) 70 %; Platelet Count 195 k/uL (150-450); RBC 4.22 m/uL (3.80-5.40); RDW 12.8 % (11.5-15.5); WBC 8.2 k/uL (3.8-10.6)
[2024-01-22 06:04] LABS: African American GFR (CKD) >90 (>60 ml/min/1.73 sqM); Anion Gap 5 mmol/L; Blood Urea Nitrogen 8 mg/dL (7-17); Calcium 8.9 mg/dL (8.4-10.2); Carbon Dioxide 23 mmol/L (22-30); Chloride 110 mmol/L (98-107); Glucose 125 mg/dL (74-99); Non-African American GFR(CKD) >90 (>60 ml/min/1.73 sqM); Potassium 4.4 mmol/L (3.5-5.1); Sodium 138 mmol/L (137-145)
[2024-01-22] MEDS: IV FLUID CONTINUATION 900 ML IV ONE (14:22)
[2024-01-22] MEDS: ONDANSETRON 4 MG/2 ML VIAL IVP PRN (14:29)
--- NOTE | 2024-01-22 14:36 | P.PN ---
Subjective Progress Note Date: 01/22/24 48-year-old female came in with a rash that started 3 days ago patient does have abscess in the lower anterior abdominal wall patient has a small circular wound as well patient does not know if she had a spider bite or something like that. Did have fever yesterday was started on vancomycin was given a dose of Rocephin in ER 01/22/2024 Patient evaluated in follow-up on the medical floor pending I&D of a left lower abdominal wall abscess. She continues on IV vancomycin. cultures's are growing presumptive MRSA. Review of Systems Constitutional: Denied any fatigue denied any fever. Cardio vascular: denied any chest pain, palpitations Gastrointestinal: denied any nausea, vomiting, diarrhea Pulmonary: Denied any shortness of breath cough Neurologic denied any new focal deficits All inpatient medications were reviewed and appropriate changes in these medications as dictated in the interval history and assessment and plan. PHYSICAL EXAMINATION: GENERAL: The patient is alert and oriented x3, not in any acute distress. Well developed, well nourished. HEENT: Pupils are round and equally reacting to light. EOMI. No scleral icterus. No conjunctival pallor. Normocephalic, atraumatic. No pharyngeal erythema. No thyromegaly. CARDIOVASCULAR: S1 and S2 present. No murmurs, rubs, or gallops. PULMONARY: Chest is clear to auscultation, no wheezing or crackles. ABDOMEN: Soft, nontender, nondistended, normoactive bowel sounds. No palpable organomegaly. MUSCULOSKELETAL: No joint swelling or deformity. EXTREMITIES: No cyanosis, clubbing, or pedal edema. NEUROLOGICAL: Gross neurological examination did not reveal any focal deficits. SKIN: Large induration/abscess in the left lower anterior abdominal wall with a small ulcer-abdominal wall abscess. Assessment and plan -Sepsis secondary to abdominal wall abscess patient will need I&D General Surgery planning to perform the I and D today. Vancomycin will be continued -MRSA growing from the abscess. ID following cultures. Former smoker DVT prophylaxis: Early ambulation The impression and plan of care has been dictated by Kelli David Nurse Practitioner as directed. Dr. Sung MD I have performed a history and physical examination and medical decision making of this patient, discussed the same with the dictator, and agree with the dictators assessment and plan as written, documented as a scribe. Based on total visit time, I have performed more than 50% of this visit. Objective - Vital Signs Vital signs: Vital Signs Temp 97.2 F L 01/22/24 14:14 Pulse 76 01/22/24 14:14 Resp 16 01/22/24 14:14 BP 125/89 01/22/24 14:14 Pulse Ox 96 01/22/24 14:14 FiO2 Intake & Output 01/21/24 01/22/24 01/22/24 18:59 06:59 18:59 Intake Total 236 Balance 236 Weight 87.09 kg Intake: Oral 236 Other: Voiding Method Toilet Toilet # Voids 2 1 1 - Labs CBC & Chem 7: 01/22/24 05:16 01/22/24 05:16 Labs: Abnormal Lab Results - Last 24 Hours (Table) 01/22/24 Range/Units 05:16 Chloride 110 H (98-107) mmol/L Glucose 125 H (74-99) mg/dL Microbiology - Last 24 Hours (Table) 01/20/24 17:27 Blood Culture - Preliminary Blood 01/20/24 16:57 Gram Stain - Preliminary Abdomen Wound Culture - Preliminary Presumptive MRSA Assessment and Plan Time with Patient: Less than 30
[2024-01-22] MEDS: HEPARIN SODIUM,PORCINE 5,000 UNIT/ML 1 ML VIAL SQ STA (15:19)
[2024-01-22] MEDS ORDERED: MIDAZOLAM 2 MG/2 ML VIAL ONE (15:41)
[2024-01-22] MEDS ORDERED: fentaNYL (PF) 50 MCG/ML 2 ML AMP ONE (15:41)
[2024-01-22] MEDS ORDERED: LIDOCAINE 1% INJ 10MG/ML (20 ML MDV) ONE (15:41)
[2024-01-22] MEDS ORDERED: SUCCINYLCHOLINE CHLORIDE 200 MG/10 ML VIAL IV ONE (15:41)
[2024-01-22] MEDS ORDERED: PROPOFOL 10 MG/ML 20 ML VIAL IV ONE (15:41)
--- NOTE | 2024-01-22 15:56 | P.PN ---
Subjective Progress Note Date: 01/22/24 Principal diagnosis: Reason for follow-up is abdominal wall abscess MRSA Patient is a 48-year-old female with no significant past medical history presenting to the hospital for evaluation of lower abdominal swelling redness pain patient has been diagnosed with abdominal wall abscess concerning for MRSA. On today's evaluation 01/22/2024, Patient is afebrile this morning patient denies having any chest pain shortness of breath or cough, the patient is currently on room air, patient lower abdominal discomfort has decreased the area has opened up and draining some bloodstained secretions. Patient white count was down to 8.2 creatinine 0.60 Objective - Vital Signs Vital signs: Vital Signs Temp 98.5 F 01/22/24 07:00 Pulse 76 01/22/24 07:00 Resp 15 01/22/24 07:00 BP 121/72 01/22/24 07:00 Pulse Ox 95 01/22/24 07:00 FiO2 Intake & Output 01/21/24 01/22/24 01/22/24 18:59 06:59 18:59 Intake Total 236 Balance 236 Weight 87.09 kg Intake: Oral 236 Other: Voiding Method Toilet Toilet # Voids 2 1 - Exam GENERAL DESCRIPTION: Middle-age female lying in bed in no distress RESPIRATORY SYSTEM: Unlabored breathing , decreased breath sounds at bases HEART: S1 S2 regular rate and rhythm , ABDOMEN: Soft , lower abdominal wall area of swelling redness induration EXTREMITIES: No edema feet - Labs CBC & Chem 7: 01/22/24 05:16 01/22/24 05:16 Labs: Abnormal Lab Results - Last 24 Hours (Table) 01/22/24 Range/Units 05:16 Chloride 110 H (98-107) mmol/L Glucose 125 H (74-99) mg/dL Microbiology - Last 24 Hours (Table) 01/20/24 17:27 Blood Culture - Preliminary Blood 01/20/24 16:57 Gram Stain - Preliminary Abdomen Wound Culture - Preliminary Presumptive MRSA Assessment and Plan (1) Abdominal abscess Current Visit: Yes Status: Acute Code(s): [id number] - SNOMED Code(s): 73471812 (2) Sepsis Current Visit: Yes Status: Acute Code(s): A41.9 - SEPSIS, UNSPECIFIED ORGANISM SNOMED Code(s): 05593394 Plan: 1patient presented hospital with sepsis in this patient who did have a fever t achycardia elevated white count elevated creatinine. 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 2await surgical drainage and deep culture. 3initial culture currently growing present for MRSA for the patient is covered with vancomycin pharmacy to dose target trough of 15 while watching kidney function and Vanco trough closely. Questions answered Dictation was produced using [employer] dictation software. please excuse any grammatical, word or spelling errors. Time with Patient: Less than 30
--- NOTE | 2024-01-22 16:40 | P.OP ---
Date of Procedure: 01/22/24 Preoperative Diagnosis: Abdominal wall abscess Postoperative Diagnosis: Abdominal wall abscess Procedure(s) Performed: Incision and drainage of abdominal abscess Anesthesia: THELMA Surgeon: Bebeto Zheng Estimated Blood Loss (ml): 5 Pathology: other (Purulent culture obtained, abdominal wall sent) Condition: stable Disposition: PACU Indications for Procedure: Abdominal wall abscess Operative Findings: Purulent material Description of Procedure: Patient was brought to the operating room where she was cleaned and draped in sterile fashion. A timeout was performed and everyone agreed with the information side. Next #15 blade was then used to make an ellipse incision around the abdominal wall opening. Immediately we encountered purulent grade discharged from the abdominal wall. This was dissected all way down to the ant erior abdominal fascia. Our incision was 3 x 2 x 5 cm deep. All activations were broken up and the abdominal wall was thoroughly irrigated. There was one bleeder on the abdominal wall fascia that we controlled with cautery and a 3-0 Vicryl suture in an interrupted fashion. Once was done we irrigated more and then packed the wound with half-inch iodoform packing. The patient tolerated procedure well and was then transferred to PACU in stable condition.
--- NOTE | 2024-01-22 16:41 | P.PN ---
Subjective Patient was taken to the operating room where an incision drainage was performed. There is now packing in the wound half of the packing will be rem wolf tomorrow. The patient is doing well she can be discharged tomorrow 01/23/2024 and then the remaining packing can be taken out at home. Okay for regular diet. Recommend oral antibiotics for discharge home Objective - Vital Signs Vital signs: Vital Signs Temp 97.9 F 01/22/24 16:26 Pulse 80 01/22/24 16:26 Resp 16 01/22/24 16:26 BP 125/56 01/22/24 16:26 Pulse Ox 98 01/22/24 16:26 FiO2 Intake & Output 01/21/24 01/22/24 01/22/24 18:59 06:59 18:59 Intake Total 236 700 Output Total 5 Balance 236 695 Weight 87.09 kg Intake: IV 700 Oral 236 Output: Estimated Blood Loss 5 Other: Voiding Method Toilet Toilet # Voids 2 1 1 - Labs CBC & Chem 7: 01/22/24 05:16 01/22/24 05:16 Labs: Abnormal Lab Results - Last 24 Hours (Table) 01/22/24 Range/Units 05:16 Chloride 110 H (98-107) mmol/L Glucose 125 H (74-99) mg/dL Microbiology - Last 24 Hours (Table) 01/20/24 17:27 Blood Culture - Preliminary Blood 01/20/24 16:57 Gram Stain - Preliminary Abdomen Wound Culture - Preliminary Presumptive MRSA
[2024-01-22] MEDS: VANCOMYCIN TROUGH DUE 1 EACH MISC MISCELLANE ONE (22:03)
[2024-01-23 06:04] LABS: African American GFR (CKD) >90 (>60 ml/min/1.73 sqM); Non-African American GFR(CKD) >90 (>60 ml/min/1.73 sqM)
--- NOTE | 2024-01-23 11:58 | P.PN ---
Subjective Progress Note Date: 01/23/24 Principal diagnosis: Reason for follow-up is abdominal wall abscess MRSA Patient is a 48-year-old female with no significant past medical history presenting to the hospital for evaluation of lower abdominal swelling redness pain patient has been diagnosed with abdominal wall abscess concerning for MRSA.Patient did have left-sided abdominal wall abscess drainage on 01/22/2024. On today's evaluation that is 01/23/2024,the patient denies any fever or any chills, patient is breathing comfortably on room air, the patient denies chest pain shortness of breath and no significant cough, patient denies nausea vomiting or diarrhea, left lower abdominal pain has slightly decreased in intensity. Patient did have a creatinine 0.72 no CBC culture positive for MRSA Objective - Vital Signs Vital signs: Vital Signs Temp 99.0 F 01/23/24 07:00 Pulse 80 01/23/24 07:00 Resp 16 01/23/24 07:00 BP 116/76 01/23/24 07:00 Pulse Ox 97 01/23/24 07:00 FiO2 Intake & Output 01/22/24 01/23/24 01/23/24 18:59 06:59 18:59 Intake Total 800 118 Output Total 5 Balance 795 118 Intake: IV 800 Oral 118 Output: Estimated Blood Loss 5 Other: Voiding Method Toilet Toilet Toilet # Voids 1 3 - Exam GENERAL DESCRIPTION: Middle-age female lying in bed in no distress RESPIRATORY SYSTEM: Unlabored breathing , decreased breath sounds at bases HEART: S1 S2 regular rate and rhythm , ABDOMEN: Soft , lower abdominal wall area of swelling redness induration EXTREMITIES: No edema feet - Labs CBC & Chem 7: 01/22/24 05:16 01/23/24 04:30 Labs: Microbiology - Last 24 Hours (Table) 01/22/24 16:10 Gram Stain - Preliminary Abdomen 01/20/24 17:27 Blood Culture - Preliminary Blood 01/20/24 16:57 Gram Stain - Final Abdomen Wound Culture - Final Methicillin resist S. aureus Assessment and Plan (1) Abdominal abscess Current Visit: Yes Status: Acute Code(s): HFH1786 - SNOMED Code(s): 7510 0008 (2) Sepsis Current Visit: Yes Status: Acute Code(s): A41.9 - SEPSIS, UNSPECIFIED ORGANISM SNOMED Code(s): 49795245 Plan: 1patient presented hospital with sepsis in this patient who did have a fever tachycardia elevated white count elevated creatinine. 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 2patient is status post surgical drainage of the abscess and deep culture 3initial culture currently growing present for MRSA 4-I will continue patient on IV vancomycin pharmacy to dose for another 24 to 48 hours before transitioning her to oral discussed with admitting Dictation was produced using [employer] dictation software. please excuse any grammatical, word or spelling errors. Time with Patient: Less than 30
--- NOTE | 2024-01-23 14:38 | P.PN ---
Subjective Progress Note Date: 01/23/24 SURGICAL PROGRESS NOTE CHIEF COMPLAINT: Abdominal wall abscess HISTORY OF PRESENT ILLNESS: Patient is postop day #1 status post incision and drainage of abdominal wall abscess. Patient reports her pain is controlled. She reports feeling better. Denies any nausea or vomiting. Afebrile. WBC 8.2 culture from the OR pending prior wound culture growing MRSA PHYSICAL EXAM: VITAL SIGNS: Reviewed. GENERAL: Well-developed in no acute distress. ABDOMEN: Soft. Nondistended. Decreased erythema on the left side of the abdomen. Packing intact. NEUROLOGIC: Alert and oriented. Cranial nerves II through XII grossly intact. ASSESSMENT: 1. Abdominal wall abscess status post incision and drainage PLAN: -Abdominal packing changed by surgeon. Wound was repacked with iodoform dressing. -Plan to remove packing tomorrow and patient can shower. -Continue antibiotics per ID service -Anticipate discharge tomorrow from surgical standpoint Physician Commissioning Editor note has been reviewed by physician. Signing provider agrees with the documented findings, assessment, and plan of care. Objective - Vital Signs Vital signs: Vital Signs Temp 98.9 F 01/23/24 13:28 Pulse 79 01/23/24 13:28 Resp 17 01/23/24 13:28 BP 138/85 01/23/24 13:28 Pulse Ox 97 01/23/24 13:28 FiO2 Intake & Output 01/22/24 01/23/24 01/23/24 18:59 06:59 18:59 Intake Total 800 118 Output Total 5 Balance 795 118 Intake: IV 800 Oral 118 Output: Estimated Blood Loss 5 Other: Voiding Method Toilet Toilet Toilet # Voids 1 3 - Labs CBC & Chem 7: 01/22/24 05:16 01/23/24 04:30 Labs: Microbiology - Last 24 Hours (Table) 01/22/24 16:10 Gram Stain - Preliminary Abdomen 01/20/24 17:27 Blood Culture - Preliminary Blood 01/20/24 16:57 Gram Stain - Final Abdomen Wound Culture - Final Methicillin resist S. aureus Assessment and Plan Assessment: 48 yo female s/p abdominal wall abscess s/p incision and drainage packing removed and repacked anticipate discharge 01/23 continue abx 7-10 days Time with Patient: Less than 30
[2024-01-23] MEDS: VANCOMYCIN 1,750 MG in SODIUM CHLORIDE 0.9% 500 ML 500 ML IVPB SCH (20:34)
--- NOTE | 2024-01-24 00:03 | PN ---
PROGRESS NOTE DATE OF SERVICE: 01/23/2024 SUBJECTIVE: This is a 48-year-old woman, who was admitted with abdominal wall abscess and sepsis, had MRSA grown from the culture. No chest pain. No palpitation. OBJECTIVE: VITAL SIGNS: Pulse is 79, blood pressure 130/85, respirations 17. CHEST: Clear. CARDIOVASCULAR: S1, S2. ABDOMEN: Soft, status post abdominal wall abscess incision and drainage. LABORATORY DATA: Reviewed. ASSESSMENT: 1. Abdominal wall abscess secondary to methicillin-resistant Staphylococcus aureus, status post incision and drainage. 2. History of nicotine dependence. RECOMMENDATIONS AND DISCUSSION: I recommend to continue the current medications and continue symptomatic treatment. Continue with vancomycin. Closely follow with Surgery and Infectious Disease. Guarded prognosis. Further recommendations to follow. MMODL / IJN: [id number] /
[2024-01-24 07:55] LABS: African American GFR (CKD) >90 (>60 ml/min/1.73 sqM); Non-African American GFR(CKD) >90 (>60 ml/min/1.73 sqM)
--- NOTE | 2024-01-24 12:39 | P.PN ---
Subjective Progress Note Date: 01/24/24 SURGICAL PROGRESS NOTE CHIEF COMPLAINT: Abdominal wall abscess HISTORY OF PRESENT ILLNESS: Patient is postop day #2 status post incision and drainage of abdominal wall abscess. Patient reports she is feeling better. Her pain is controlled. Afebrile. Culture from the OR growing presumptive MRSA PHYSICAL EXAM: VITAL SIGNS: Reviewed. GENERAL: Well-developed in no acute distress. ABDOMEN: Soft. Nondistended. Decreased erythema on the left side of the abdomen. Packing intact. NEUROLOGIC: Alert and oriented. Cranial nerves II through XII grossly intact. ASSESSMENT: 1. Abdominal wall abscess status post incision and drainage PLAN: -Remove packing today while in shower. Do not need to repack abdominal wound -Patient can be discharged from surgical standpoint -Discharge antibiotics per ID service Physician Patient Experience Coordinator note has been reviewed by physician. Signing provider agrees with the documented findings, assessment, and plan of care. Objective - Vital Signs Vital signs: Vital Signs Temp 97.8 F 01/24/24 07:00 Pulse 78 01/24/24 07:00 Resp 17 01/24/24 07:00 BP 124/77 01/24/24 07:00 Pulse Ox 96 01/24/24 07:00 FiO2 Intake & Output 01/23/24 01/24/24 01/24/24 18:59 06:59 18:59 Intake Total 118 118 Balance 118 118 Intake: Oral 118 118 Other: Voiding Method Toilet Toilet Toilet # Voids 3 2 - Labs CBC & Chem 7: 01/22/24 05:16 01/24/24 05:34 Labs: Microbiology - Last 24 Hours (Table) 01/20/24 17:27 Blood Culture - Preliminary Blood 01/22/24 16:10 Gram Stain - Preliminary Abdomen Wound Culture - Preliminary Presumptive MRSA
--- NOTE | 2024-01-24 13:58 | P.PN ---
Subjective Progress Note Date: 01/24/24 Principal diagnosis: Reason for follow-up is abdominal wall abscess MRSA Patient is a 48-year-old female with no significant past medical history presenting to the hospital for evaluation of lower abdominal swelling redness pain patient has been diagnosed with abdominal wall abscess concerning for MRSA.Patient did have left-sided abdominal wall abscess drainage on 01/22/2024. On today's evaluation that is 01/24/2024,the patient remains to be afebrile, patient is on room air not requiring supplemental oxygen and denies any shortness of breath no chest pain or cough.Patient denies having any nausea or vomiting, left lower quadrant abdominal pain has slightly decreased in i ntensity. Patient did have a creatinine 0.70 abdominal culture with MRSA blood culture have been negative Objective - Vital Signs Vital signs: Vital Signs Temp 97.8 F 01/24/24 07:00 Pulse 78 01/24/24 07:00 Resp 17 01/24/24 07:00 BP 124/77 01/24/24 07:00 Pulse Ox 96 01/24/24 07:00 FiO2 Intake & Output 01/23/24 01/24/24 01/24/24 18:59 06:59 18:59 Intake Total 118 118 Balance 118 118 Intake: Oral 118 118 Other: Voiding Method Toilet Toilet Toilet # Voids 3 2 - Exam GENERAL DESCRIPTION: Middle-age female lying in bed in no distress RESPIRATORY SYSTEM: Unlabored breathing , decreased breath sounds at bases HEART: S1 S2 regular rate and rhythm , ABDOMEN: Soft , lower abdominal wall area of swelling redness induration EXTREMITIES: No edema feet - Labs CBC & Chem 7: 01/22/24 05:16 01/24/24 05:34 Labs: Microbiology - Last 24 Hours (Table) 01/20/24 17:27 Blood Culture - Preliminary Blood 01/22/24 16:10 Gram Stain - Preliminary Abdomen Wound Culture - Preliminary Presumptive MRSA Assessment and Plan (1) Abdominal abscess Current Visit: Yes Status: Acute Code(s): [id number] - SNOMED Code(s): 17293 008 (2) Sepsis Current Visit: Yes Status: Acute Code(s): A41.9 - SEPSIS, UNSPECIFIED ORGANISM SNOMED Code(s): 47427009 Plan: 1patient presented hospital with sepsis in this patient who did have a fever tachycardia elevated white count elevated creatinine. 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 2patient is status post surgical drainage of the abscess and deep culture 3initial culture currently growing MRSA blood culture has been negative 4-I will continue patient on IV vancomycin pharmacy to dose for another 24 hours before transitioning her to oral Bactrim DS x 10 days on discharge Dictation was produced using [employer] dictation software. please excuse any grammatical, word or spelling errors. Time with Patient: Less than 30
[2024-01-25] MEDS: VANCOMYCIN TROUGH DUE 1 EACH MISC MISCELLANE ONE (09:06)
--- NOTE | 2024-01-25 09:57 | P.PN ---
Subjective Progress Note Date: 01/25/24 SURGICAL PROGRESS NOTE CHIEF COMPLAINT: Abdominal wall abscess HISTORY OF PRESENT ILLNESS: Patient is postop day #3 status post incision and drainage of abdominal wall abscess. Patient reports she is feeling better. Her pain is controlled. The packing was removed yesterday. She is afebrile. Culture growing MRSA PHYSICAL EXAM: VITAL SIGNS: Reviewed. GENERAL: Well-developed in no acute distress. ABDOMEN: Soft. Nondistended. Improvement in abdominal wound. Decreased erythema. Minimal tenderness. NEUROLOGIC: Alert and oriented. Cranial nerves II through XII grossly intact. ASSESSMENT: 1. Abdominal wall abscess status post incision and drainage PLAN: -Patient can be discharge from surgical standpoint -Recommend patient showers daily -Antibiotics per ID service Physician Beauty Sales Consultant note has been reviewed by physician. Signing provider agrees with the documented findings, assessment, and plan of care. Objective - Vital Signs Vital signs: Vital Signs Temp 97.6 F 01/25/24 07:00 Pulse 71 01/25/24 07:00 Resp 16 01/25/24 07:00 BP 135/83 01/25/24 07:00 Pulse Ox 97 01/25/24 07:00 FiO2 Intake & Output 01/24/24 01/25/24 01/25/24 18:59 06:59 18:59 Intake Total 236 476 Balance 236 476 Intake: Oral 236 476 Other: Voiding Method Toilet Toilet # Voids 3 4 - Labs CBC & Chem 7: 01/25/24 07:05 01/25/24 07:05 Labs: Microbiology - Last 24 Hours (Table) 01/22/24 16:10 Gram Stain - Final Abdomen Wound Culture - Final Methicillin resist S. aureus 01/22/24 16:10 Anaerobic Culture - Preliminary Abdomen Assessment and Plan Assessment: stable for discharge Time with Patient: Less than 30
[2024-01-25 10:40] LABS: Basophils # (A) 0.08 X 10*3/uL (0.00-0.10); Basophils % (A) 1.3 %; Eosinophils # (A) 0.27 X 10*3/uL (0.04-0.35); Eosinophils % (A) 4.5 %; HCT 42.2 % (37.2-46.3); HGB 13.4 g/dL (12.0-15.0); Lymphocytes # (A) 1.87 X 10*3/uL (0.90-5.00); Lymphocytes % (A) 31.1 %; MCHC 31.8 g/dL (32.0-37.0); MCV 91.3 FL (80.0-97.0); Mean Platelet Volume 11.8 FL (9.5-12.2); Monocytes # (A) 0.54 X 10*3/uL (0.20-1.00); NRBC Per 100 WBC 0 X 10*3/uL (0.00-0.01); Neutrophils % (A) 53.3 %; Platelet Count 263 X 10*3/uL (140-440); RBC 4.62 X 10*6/uL (4.10-5.20); RDW 12.7 % (11.5-14.5); WBC 6.01 X 10*3/uL (4.50-10.00)
[2024-01-25 10:45] LABS: BUN/Creat Ratio 14.25 Ratio (12.00-20.00); Blood Urea Nitrogen 11.4 mg/dL (9.0-27.0); Calcium 9.1 mg/dL (8.7-10.3); Carbon Dioxide 26.6 mmol/L (21.6-31.8); Chloride 106 mmol/L (96-109); Glucose 116 mg/dL (70-110); Potassium 4.8 mmol/L (3.5-5.5); Sodium 143 mmol/L (135-145)
--- NOTE | 2024-01-25 13:16 | PN ---
PROGRESS NOTE DATE OF SERVICE: 01/24/2024 SUBJECTIVE: This 48-year-old woman is admitted with abdominal abscess caused by MRSA, is being closely monitored. The patient is on IV antibiotics, no chest pain, no palpitation. PHYSICAL EXAMINATION: VITAL SIGNS: Pulse is 78, blood pressure n, respirations 17. CHEST: Clear to auscultation. ABDOMEN: Abdominal wall abscess present. LABORATORY DATA: n ASSESSMENT: 1. Abdominal wall abscess, secondary to methicillin-resistant Staphylococcus aureus, status post incision and drainage. 2. History of nicotine dependence. RECOMMENDATIONS AND DISCUSSION: Recommend to continue current medications and current symptomatic treatment. Otherwise, continue with IV antibiotics. I would recommend repeat labs, pain management, guarded prognosis. Further recommendations to follow. MMODL / IJN: [id number] / EMBER
[2024-01-25 13:26] VITALS: BMI 32.9
[2024-01-25 14:10] VITALS: BP 128/72; PULSE 74; RESP 14; TEMP 97.8
[2024-01-25] MEDS ORDERED: VANCOMYCIN 1,500 MG in SODIUM CHLORIDE 0.9% 500 ML 500 ML IVPB SCH (17:00)
--- NOTE | 2024-01-26 04:07 | DS ---
DISCHARGE SUMMARY FINAL DIAGNOSES: 1. Abdominal wall abscess secondary to methicillin-resistant Staphylococcus aureus, status post incision and drainage. 2. History of nicotine dependence. DISCHARGE DISPOSITION: The patient will be discharged in stable condition and guarded. She is cleared by Surgery and ID. HISTORY OF PRESENT ILLNESS: 48-year-old woman was admitted with abdominal abscess, underwent I and D, MRSA was grown, treated with vancomycin, improved significantly. The wound also looks much better. The patient will be discharged with a course of Bactrim b.i.d. for 10 days and further followup with Dr. Whiting, Surgery, Princess Mc, JOANN, and Dr. Johnson, Infectious Disease. MMODL / IJN: [id number] /
== END 2024-01-25 17:05 | disposition home or self-care (01) | DRG 710 ==
LOC: EC 13:25 → 6NMEDSUR 19:42 → OBSVTOIN 19:43 → 6NMEDSUR 01-21 06:30
PROVIDERS: ADMIT Hospitalist; ATTEND Hospitalist
PROC: 0J980ZZ Drainage of Abdomen Subcutaneous Tissue and Fascia, Open Approach (ICD-10-PCS; principal; 2024-01-22 07:30)
DX: A41.02 Sepsis due to Methicillin resistant Staphylococcus aureus (principal); L02.211 Cutaneous abscess of abdominal wall; L30.9 Dermatitis, unspecified; Z87.891 Personal history of nicotine dependence
CPT/HCPCS: 36415; 80048; 80053; 80202; 81025; 82565; 83605; 85025; 87040; 87070; 87075; 87077; 87186; 87205; 96361; 96365; 96366; 96367; 99285